=== PATIENT | male | born 1965 | race Caucasian/White ===

== ENCOUNTER 2023-05-06 23:46 | Emergency (ER) | payer OTHER ==
[~2023-05-06] VITALS: Ht 172.7 cm; Wt 77.0 kg
[2023-05-07 01:28] VITALS: TEMP 98.4
[2023-05-07] MEDS ORDERED: ONDANSETRON HCL 4 MG/2 ML VIAL IVP ONE (01:45)
[2023-05-07] MEDS ORDERED: MORPHINE SULFATE 4 MG/ML SYRINGE IVP ONE (01:45)
[2023-05-07 02:15] LABS: BASOPHILS % (AUTO) 0.8 % (0.0-2.0); EOSINOPHILS % (AUTO) 2.1 % (1.0-6.0); HEMATOCRIT 23.4 % (41-53); HEMOGLOBIN 7.7 g/dL (13.5-17.5); LYMPHOCYTES # (AUTO) 1.3 K/uL (1.0-4.8); LYMPHOCYTES % (AUTO) 14.7 % (22.0-44.0); MEAN CORPUSCULAR HEMOGLOBIN 30.6 pg (26.0-34.0); MEAN CORPUSCULAR VOLUME 93 fL (80-100); MONOCYTES # (AUTO) 1.1 K/uL (0.1-1.0); MONOCYTES % (AUTO) 12.6 % (2.0-9.0); NEUTROPHILS # (AUTO) 6.2 K/uL (1.8-7.7); NEUTROPHILS % (AUTO) 69.8 % (40.0-70.0); PLATELET COUNT (AUTO) 358 K/uL (150-450); RED BLOOD CELL COUNT(AUTO) 2.52 MIL/uL (4.50-5.90); RED CELL DISTRIBUTION WIDTH 16.4 % (11.5-14.5)
[2023-05-07 02:25] LABS: POTASSIUM 5.2 mmol/L (3.5-5.1)
[2023-05-07 02:35] LABS: CALCIUM, TOTAL 8.1 mg/dL (8.8-10.5); CREATININE 4.94 mg/dL (0.60-1.30)
[2023-05-07] MEDS ORDERED: SODIUM CHLORIDE 0.9% 1,000 ML IV ONE (03:00)
[2023-05-07 07:22] VITALS: BP 126/69; PULSE 71; RESP 16
[2023-05-10] MEDS ORDERED: ASCO500C6 PO (20:18)
[2023-05-10] MEDS ORDERED: MULT-264 PO (20:21)
[2023-05-10] MEDS ORDERED: ATOR40TA71 PO (20:21)
[2023-05-10] MEDS ORDERED: NA P133E4 PR (20:41)
[2023-05-10] MEDS ORDERED: LACT10SO10 PO (20:41)
[2023-05-10] MEDS ORDERED: EPOE20006 SQ (20:41)
[2023-05-10] MEDS ORDERED: BISA10SU61 PR (20:41)
[2023-05-10] MEDS ORDERED: SENN-31 PO (21:04)
[2023-05-10] MEDS ORDERED: OXYC10TA59 PO (21:04)
[2023-05-10] MEDS ORDERED: SEVE800T27 PO (21:04)
[2023-05-10] MEDS ORDERED: AMIN30LI28 PO (21:05)
[2023-05-10] MEDS ORDERED: SODI650T33 PO (21:07)
[2023-05-10] MEDS ORDERED: NICO1PAT49 TD (21:11)
[2023-05-10] MEDS ORDERED: INSU100V SQ ×2 (21:13→21:15)
[2023-05-10] MEDS ORDERED: GLUC1VIA6 SQ (21:17)
[2023-05-11] MEDS ORDERED: SODI650T33 PO (12:22)
[2023-05-11] MEDS ORDERED: MULT-264 PO (12:22)
[2023-05-11] MEDS ORDERED: ATOR40TA71 PO (12:22)
[2023-05-11] MEDS ORDERED: SEVE800T27 PO (12:22)
== END 2023-05-07 10:22 | disposition home or self-care (01) ==
LOC: EMS 23:46
DX: K40.90 Unilateral inguinal hernia, without obstruction or gangrene, not specified as recurrent (principal); D64.9 Anemia, unspecified; E11.22 Type 2 diabetes mellitus with diabetic chronic kidney disease; N18.9 Chronic kidney disease, unspecified; E78.00 Pure hypercholesterolemia, unspecified; F17.210 Nicotine dependence, cigarettes, uncomplicated
CPT/HCPCS: 99285; 80048; 85025; 36415; 74176; 96374; 96361; 96375; J2270; J2405; J7030